=== PATIENT | male | born 1980 | race Caucasian/White ===

== ENCOUNTER 2022-01-21 20:45 | Emergency (ER) | payer BC ==
[2022-01-21] MEDS ORDERED: Bacitracin Oint 1 GM U/D Packet TOP ONE (22:33)
[2022-01-21] MEDS ORDERED: Diphtheria,Pertussis(Acell),Tetanus Vaccine 0.5 ML Syringe IM ONE (22:33)
[2022-01-21] MEDS ORDERED: Lidocaine 1% with EPINEPHrine 1:100,000 50 ML MDV SUBCUT STA (22:33)
== END 2022-01-21 23:30 | disposition home or self-care (01) ==
LOC: JP.ED 20:45
DX: S81.011A Laceration without foreign body, right knee, initial encounter (principal); Z23 Encounter for immunization; W26.8XXA Contact with other sharp object(s), not elsewhere classified, initial encounter
CPT/HCPCS: 12001; 73562-RT; 90471; 90715; 99283-25